=== PATIENT | female | born 1950 | race Caucasian/White ===

== ENCOUNTER 2020-09-21 13:28 | Emergency (ER) | payer BC, OTHER ==
[2020-09-21 13:52] VITALS: BMI 29.0
[2020-09-21] MEDS ORDERED: BAMLANIVIMAB 700 MG in SODIUM CHLORIDE 250 ML IVPB ONE (13:58)
[2020-09-21] MEDS ORDERED: ALPRAZolam 1 MG TABLET PO PRN (13:59)
[2020-09-21] MEDS ORDERED: ALPRAZolam 1 MG TABLET ONE (14:08)
[2020-09-21] MEDS ORDERED: ALPRAZolam 0.25 MG TABLET ONE (14:09)
[2020-09-21 14:36] LABS: HEMOGLOBIN 14.5 GM/dL (10.7-15.3); MCH 31.1 pg (25.7-33.7); MCHC 33.8 g/dl (32.0-36.0); MEAN CELL VOLUME 92.2 fl (80-96); MEAN PLT VOLUME 8.8 fl (7.5-11.1); PLATELET COUNT 178 K/MM3 (134-434); RBC 4.66 M/mm3 (3.60-5.2); RDW 13.6 % (11.6-15.6); WHITE BLOOD COUNT 6.5 K/mm3 (4.0-10.0)
[2020-09-21 14:54] LABS: POTASSIUM 4.2 mmol/L (3.5-5.1)
[2020-09-21 14:56] LABS: CALCIUM 9.3 mg/dL (8.5-10.1)
[2020-09-21 15:00] LABS: CREATININE 1.2 mg/dL (0.55-1.3)
[2020-09-21] MEDS ORDERED: ACETAMINOPHEN 325 MG TABLET (FP) ONE (15:02)
[2020-09-21 16:54] VITALS: BP 142/93; PULSE 83; TEMP 98.9
== END 2020-09-21 17:00 | disposition home or self-care (01) ==
LOC: JCOVINFU 13:28 → JER 13:28 → JCOVINFU 17:00
DX: U07.1 COVID-19 (principal)
CPT/HCPCS: 36415; 80048; 85027; 99284-25; M0239; Q0239

== ENCOUNTER 2021-01-22 12:16 | Emergency (ER) | payer BC ==
[2021-01-22 12:23] VITALS: TEMP 98.5; BMI 28.6
[2021-01-22 13:16] VITALS: BP 151/108; PULSE 84
== END 2021-01-22 13:52 | disposition home or self-care (01) ==
LOC: JER 12:16
DX: R25.1 Tremor, unspecified (principal)
CPT/HCPCS: 99281-25

== ENCOUNTER 2021-11-12 12:31 | Emergency (ER) | payer BC ==
[2021-11-12 12:49] VITALS: BP 169/90; PULSE 98; TEMP 98.3; BMI 31.9
[2021-11-12] MEDS ORDERED: KETOROLAC TROMETHAMINE 30 MG/1 ML VIAL IM ONE (14:40)
[2021-11-12] MEDS ORDERED: KETOROLAC TROMETHAMINE 30 MG/1 ML VIAL ONE (15:11)
== END 2021-11-12 15:43 | disposition home or self-care (01) ==
LOC: JER 12:31
PROC: 3E0233Z Introduction of Anti-inflammatory into Muscle, Percutaneous Approach (ICD-10-PCS; principal; 2021-11-12)
DX: M54.2 Cervicalgia (principal); M54.50 Low back pain, unspecified
CPT/HCPCS: 99284-25

== ENCOUNTER 2021-11-30 04:16 | Day surgery (SDC) | payer BC ==
[2021-11-28 12:43] VITALS: BMI 28.3
[2021-11-30] MEDS ORDERED: LIDOCAINE HCL/PF 1% SDV 5ML VIAL ONE (07:15)
[2021-11-30] MEDS ORDERED: BUPIVACAINE HCL/PF 0.75% 10 ML VIAL ONE (07:15)
[2021-11-30] MEDS ORDERED: LIDOCAINE HCL 1% PRESERVATIVE FREE - 30ML VIAL IJ ONE (09:08)
[2021-11-30] MEDS ORDERED: IOHEXOL 180 MG/1 ML ML IJ ONE (09:10)
[2021-11-30] MEDS ORDERED: BUPIVACAINE HCL/PF 0.75% 10 ML VIAL MM ONE (09:15)
[2021-11-30 09:41] VITALS: TEMP 98.8
[2021-11-30 10:19] VITALS: BP 131/85; PULSE 66
== END 2021-11-30 10:00 | disposition home or self-care (01) ==
LOC: JASU-SURG 04:16
PROVIDERS: ATTEND Pain Medicine Pain Medicine
PROC: BR16YZZ Fluoroscopy of Lumbar Facet Joint(s) using Other Contrast (ICD-10-PCS; 2021-11-30)
PROC: 3E0T3BZ Introduction of Anesthetic Agent into Peripheral Nerves and Plexi, Percutaneous Approach (ICD-10-PCS; principal; 2021-11-30 09:00)
DX: M47.816 Spondylosis without myelopathy or radiculopathy, lumbar region (principal); I10 Essential (primary) hypertension
CPT/HCPCS: 76000-TC-FY

== ENCOUNTER 2021-12-16 17:56 | Emergency (ER) | payer BC ==
[2021-12-16 18:05] VITALS: BP 168/111; PULSE 67; TEMP 98; BMI 28.3
== END 2021-12-16 19:00 | disposition home or self-care (01) ==
LOC: JER 17:56
DX: M54.50 Low back pain, unspecified (principal)
CPT/HCPCS: 99283-25

== ENCOUNTER 2021-12-20 11:00 | Emergency (ER) | payer BC ==
[2021-12-20 11:05] VITALS: TEMP 97.7; BMI 28.3
[2021-12-20] MEDS ORDERED: KETOROLAC TROMETHAMINE 30 MG/1 ML VIAL IM ONE (11:39)
[2021-12-20] MEDS ORDERED: LIDOCAINE 5% TOPICAL PATCH TP ONE (11:39)
[2021-12-20] MEDS ORDERED: KETOROLAC TROMETHAMINE 30 MG/1 ML VIAL ONE (11:54)
[2021-12-20] MEDS ORDERED: LIDOCAINE 5% TOPICAL PATCH ONE (11:54)
[2021-12-20 12:45] VITALS: PULSE 68
[2021-12-20 14:04] VITALS: BP 164/107
[2021-12-20] MEDS ORDERED: LIDOCAINE PATCH REMOVAL MC SCH (22:00)
== END 2021-12-20 14:05 | disposition home or self-care (01) ==
LOC: JER 11:00
PROC: 3E023GC Introduction of Other Therapeutic Substance into Muscle, Percutaneous Approach (ICD-10-PCS; principal; 2021-12-20)
DX: M54.89 Other dorsalgia (principal)
CPT/HCPCS: 93005; 93010; 99284-25

== ENCOUNTER 2021-12-30 15:40 | Emergency (ER) | payer BC ==
[2021-12-30 15:47] VITALS: PULSE 98; TEMP 97; BMI 28.3
[2021-12-30] MEDS ORDERED: TIZANIDINE HCL 4 MG TABLET PO ONE (16:32)
[2021-12-30] MEDS ORDERED: KETOROLAC TROMETHAMINE 15 MG/ML VIAL IM ONE (16:33)
[2021-12-30] MEDS ORDERED: KETOROLAC TROMETHAMINE 15 MG/ML VIAL ONE (17:05)
[2021-12-30 18:25] VITALS: BP 137/95
== END 2021-12-30 18:25 | disposition home or self-care (01) ==
LOC: JERFT 15:40
PROC: 3E0233Z Introduction of Anti-inflammatory into Muscle, Percutaneous Approach (ICD-10-PCS; principal; 2021-12-30)
DX: M54.50 Low back pain, unspecified (principal); G89.29 Other chronic pain
CPT/HCPCS: 96372; 99284-25

== ENCOUNTER 2022-01-01 04:08 | Day surgery (SDC) | payer BC ==
[2021-12-27 17:08] VITALS: BMI 28.3
[2022-01-01] MEDS ORDERED: LIDOCAINE HCL/PF 1% SDV 5ML VIAL ONE (07:21)
[2022-01-01] MEDS ORDERED: BUPIVACAINE HCL/PF 0.75% 10 ML VIAL ONE (07:21)
[2022-01-01] MEDS ORDERED: LIDOCAINE HCL/PF 2% SDV 5ML VIAL ONE (07:43)
[2022-01-01 12:29] VITALS: BP 147/86; PULSE 94; TEMP 97
== END 2022-01-01 14:15 | disposition home or self-care (01) ==
LOC: JASU-SURG 04:08
PROVIDERS: ATTEND Pain Medicine Pain Medicine
DX: Z53.8 Procedure and treatment not carried out for other reasons (principal)

== ENCOUNTER 2022-01-01 14:25 | Emergency (ER) | payer BC ==
[2022-01-01 14:36] VITALS: TEMP 98.6; BMI 28.3
[2022-01-01 15:39] VITALS: BP 155/94; PULSE 78
[2022-01-01] MEDS ORDERED: ACETAMINOPHEN 325 MG TABLET (FP) PO ONE (15:49)
[2022-01-01] MEDS ORDERED: ACETAMINOPHEN 325 MG TABLET (FP) ONE (16:23)
== END 2022-01-01 17:51 | disposition home or self-care (01) ==
LOC: JER 14:25
DX: M54.50 Low back pain, unspecified (principal); R03.0 Elevated blood-pressure reading, without diagnosis of hypertension
CPT/HCPCS: 70450-TC; 93005; 93010; 99284-25

== ENCOUNTER 2022-01-25 19:48 | Emergency (ER) | payer BC ==
[2022-01-25 19:52] VITALS: BP 188/113; PULSE 104; BMI 28.3
[2022-01-25] MEDS ORDERED: methylPREDNISolone NA SUCC 125 MG/2 ML VIAL IVPUSH ONE (20:50)
[2022-01-25] MEDS ORDERED: methylPREDNISolone NA SUCC 125 MG/2 ML VIAL ONE (21:02)
== END 2022-01-25 22:49 | disposition home or self-care (01) ==
LOC: JER 19:48
PROC: 3E033GC Introduction of Other Therapeutic Substance into Peripheral Vein, Percutaneous Approach (ICD-10-PCS; principal; 2022-01-25)
DX: M54.89 Other dorsalgia (principal)
CPT/HCPCS: 99284-25

== ENCOUNTER 2022-01-28 12:17 | Emergency (ER) | payer BC ==
[2022-01-28 12:35] VITALS: PULSE 80; TEMP 98.4; BMI 26.7
[2022-01-28 13:40] VITALS: BP 151/103
== END 2022-01-28 13:47 | disposition home or self-care (01) ==
LOC: JER 12:17 → JERFT 12:17
DX: M54.89 Other dorsalgia (principal); G89.29 Other chronic pain
CPT/HCPCS: 99283-25

== ENCOUNTER 2022-04-07 13:53 | Emergency (ER) | payer BC ==
[2022-04-07 13:57] VITALS: BP 190/91; PULSE 69; RESP 18; TEMP 97.8; BMI 26.7
[2022-04-07] MEDS ORDERED: DEXAMETHASONE SOD PHOSPHATE 10 MG/1 ML VIAL IM ONE (14:24)
[2022-04-07] MEDS ORDERED: LIDOCAINE 5% TOPICAL PATCH TP ONE (14:24)
[2022-04-07] MEDS ORDERED: LIDOCAINE 5% TOPICAL PATCH ONE (14:27)
[2022-04-07] MEDS ORDERED: DEXAMETHASONE SOD PHOSPHATE 10 MG/1 ML VIAL ONE (14:28)
[2022-04-08] MEDS ORDERED: LIDOCAINE PATCH REMOVAL MC SCH (02:30)
== END 2022-04-07 15:38 | disposition home or self-care (01) ==
LOC: JER 13:53 → JERFT 13:53
PROC: 3E023GC Introduction of Other Therapeutic Substance into Muscle, Percutaneous Approach (ICD-10-PCS; principal; 2022-04-07)
DX: M54.50 Low back pain, unspecified (principal)
CPT/HCPCS: 99284-25; J1100

== ENCOUNTER 2022-04-14 15:47 | Emergency (ER) | payer BC ==
[2022-04-14 16:13] VITALS: PULSE 60; RESP 18; TEMP 97.9; BMI 26.9
[2022-04-14 17:00] VITALS: BP 162/101
[2022-04-14] MEDS ORDERED: LIDOCAINE 5% TOPICAL PATCH TP ONE (17:06)
[2022-04-14] MEDS ORDERED: LIDOCAINE 5% TOPICAL PATCH ONE (17:29)
[2022-04-15] MEDS ORDERED: LIDOCAINE PATCH REMOVAL MC SCH (05:00)
== END 2022-04-14 18:40 | disposition home or self-care (01) ==
LOC: JER 15:47 → JERFT 15:47
DX: M54.9 Dorsalgia, unspecified (principal)
CPT/HCPCS: 99283-25

== ENCOUNTER 2023-04-10 05:16 | Day surgery (SDC) | payer BC ==
[2023-04-08 13:19] VITALS: BMI 25.6
[2023-04-10 11:30] VITALS: TEMP 97.8
[2023-04-10 13:16] VITALS: BP 151/75; PULSE 58; RESP 18
== END 2023-04-10 12:45 | disposition home or self-care (01) ==
LOC: JASU-ENDO 05:16
PROVIDERS: ATTEND Internal Medicine Gastroenterology
PROC: 0DJD8ZZ Inspection of Lower Intestinal Tract, Via Natural or Artificial Opening Endoscopic (ICD-10-PCS; 2023-04-10)
PROC: 0DJD8ZZ Inspection of Lower Intestinal Tract, Via Natural or Artificial Opening Endoscopic (ICD-10-PCS; principal; 2023-04-10 11:00)
DX: Z12.11 Encounter for screening for malignant neoplasm of colon (principal); K55.20 Angiodysplasia of colon without hemorrhage; K57.30 Diverticulosis of large intestine without perforation or abscess without bleeding

== ENCOUNTER 2024-11-24 06:22 | Inpatient (IN) | payer OTHER ==
[2024-11-19 14:38] VITALS: BMI 28.1
[2024-11-24 07:06] LABS: INR 1.11 (0.83-1.09); PROTHROMBIN TIME (PATIENT) 12.2 SEC (9.7-13.0)
[2024-11-24] MEDS ORDERED: SUCCINYLCHOLINE CHLORIDE 200 MG/10 ML SYRINGE ONE (07:24)
[2024-11-24] MEDS ORDERED: ROCURONIUM BROMIDE 50 MG/5 ML SYRINGE ONE ×2 (07:24→09:13)
[2024-11-24] MEDS ORDERED: ESMOLOL HCL 100,000 MCG/10 ML VIAL ONE (07:25)
[2024-11-24] MEDS ORDERED: ceFAZolin SODIUM 1 GM VIAL ONE (07:25)
[2024-11-24] MEDS ORDERED: LIDOCAINE HCL/PF 2% SDV 5ML VIAL ONE (07:25)
[2024-11-24] MEDS ORDERED: DEXAMETHASONE SOD PHOSPHATE 4 MG/1 ML VIAL ONE (07:25)
[2024-11-24] MEDS ORDERED: ONDANSETRON 4 MG/2 ML VIAL ONE (07:25)
[2024-11-24] MEDS ORDERED: MIDAZOLAM HCL 2 MG/2 ML SINGLE DOSE VIAL ONE ×2 (07:30→10:44)
[2024-11-24] MEDS ORDERED: niCARdipine HCL 25 MG/10 ML AMPUL IVPB ONE (07:36)
[2024-11-24] MEDS ORDERED: ACETAMINOPHEN INJECTION 100 ML ONE (07:36)
[2024-11-24] MEDS ORDERED: ALBUTEROL SO4 HFA INHALER IH ONE ×2 (08:09)
[2024-11-24] MEDS: ceFAZolin SODIUM 1 GM VIAL IVPB ONE (08:40)
[2024-11-24] MEDS ORDERED: ADENOSINE 6 MG/2 ML VIAL IVPUSH ONE (08:46)
[2024-11-24] MEDS ORDERED: ALBUMIN HUMAN 5% 500 ML IV SOLUTION IV ONE (10:00)
[2024-11-24] MEDS ORDERED: PROTAMINE SULFATE 50 MG/5 ML VIAL ONE (10:16)
[2024-11-24] MEDS ORDERED: HYDROmorphone HCl 2 MG/ML VIAL ONE (10:20)
[2024-11-24] MEDS ORDERED: SUGAMMADEX SODIUM 200 MG/2 ML VIAL ONE (10:22)
[2024-11-24] MEDS ORDERED: PROPOFOL 20 ML ONE (10:24)
[2024-11-24] MEDS ORDERED: PATIENT'S OWN MEDICATION (NON-FORMULARY) (Alprazolam [Xanax] 0.5 MG Tablet) PO SCH (10:45)
[2024-11-24] MEDS ORDERED: ALBUTEROL SO4 HFA INHALER IH SCH (10:45)
[2024-11-24] MEDS ORDERED: LACTATED RINGERS SOLUTION 1,000 ML IV SCH (11:00)
[2024-11-24] MEDS ORDERED: ALPRAZolam 2 MG TABLET PO PRN (11:07)
[2024-11-24] MEDS ORDERED: HALOPERIDOL LACTATE 5 MG/ML ONE (11:23)
[2024-11-24] MEDS: HALOPERIDOL LACTATE 5 MG/ML IVPUSH SCH (11:23)
[2024-11-24 12:23] VITALS: RESP 18
[2024-11-24] MEDS ORDERED: HALOPERIDOL LACTATE 5 MG/ML IM SCH (12:45)
[2024-11-24] MEDS: LACTATED RINGERS SOLUTION 1,000 ML IV SCH (12:51)
[2024-11-24] MEDS: oxyCODONE HCL 5 MG TABLET PO PRN (14:53)
[2024-11-24] MEDS ORDERED: CEFAZOLIN 1 GM/D5W 1 GM/50 ML BAG IVPB SCH (16:00)
[2024-11-24] MEDS: ACETAMINOPHEN 500 MG TABLET (FP) PO SCH (17:10)
[2024-11-24] MEDS: ALPRAZolam 1 MG TABLET PO PRN (17:22)
[2024-11-24] MEDS: CEFAZOLIN 1 GM in DEXTROSE 5%-WATER - 50 ML IVPB SCH (17:54)
[2024-11-24 20:51] LABS: ABSOLUTE IMMATURE GRANULOCYTES 0.03 x10^3/uL (0.0-0.031); BASOPHILS # 0.02 x10^3/uL (0.01-0.08); EOSINOPHIL % 0.1 % (0.7-5.8); EOSINOPHILS # 0.01 x10^3/uL (0.04-0.36); HEMATOCRIT 30.3 % (34.1-44.9); HEMOGLOBIN 9.7 g/dL (11.2-15.7); MEAN CELL VOLUME 88.9 fl (79.4-94.8); MEAN PLT VOLUME 9.8 fl (9.4-12.3); MONOCYTE # 0.32 x10^3/uL (0.24-0.86); PLATELET COUNT 166 x10^3/uL (182-369); RDW 13.5 % (12.4-16.6)
[2024-11-24] MEDS: CHLORHEXIDINE GLUCONATE 4% CLEANSER FOR DECOLONIZATION TP SCH (21:14)
[2024-11-24] MEDS: ATORVASTATIN CA 20 MG TABLET (FP) PO SCH (21:16)
[2024-11-24 21:17] LABS: ALBUMIN 3.7 g/dl (3.4-5.0); BLOOD UREA NITROGEN 25.5 mg/dL (7-18); MAGNESIUM 1.7 mg/dL (1.8-2.4)
[2024-11-24 21:20] LABS: CREATININE 1.4 mg/dL (0.55-1.3)
[2024-11-24] MEDS: MUPIROCIN 2% TOPICAL OINTMENT FOR DECOLONIZATION NS SCH (21:20)
[2024-11-24 21:21] LABS: PHOSPHOROUS 3.4 mg/dL (2.5-4.9)
[2024-11-24 21:22] LABS: BILIRUBIN,TOTAL 0.6 mg/dL (0.2-1); TOT PROT 6.1 g/dl (6.4-8.2)
[2024-11-24] MEDS: MAGNESIUM SULFATE IN WATER 2 GM/50 ML IVPB IVPB ONE (21:26)
[2024-11-25] MEDS: LEVOTHYROXINE NA 125 MCG TABLET (FP) PO SCH (06:05)
[2024-11-25 06:50] LABS: ABSOLUTE IMMATURE GRANULOCYTES 0.05 x10^3/uL (0.0-0.031); BASOPHILS # 0.02 x10^3/uL (0.01-0.08); EOSINOPHIL % 0.2 % (0.7-5.8); EOSINOPHILS # 0.02 x10^3/uL (0.04-0.36); HEMATOCRIT 32.4 % (34.1-44.9); HEMOGLOBIN 10.2 g/dL (11.2-15.7); MCHC 31.5 g/dl (32.2-35.5); MEAN CELL VOLUME 91.3 fl (79.4-94.8); MEAN PLT VOLUME 9.9 fl (9.4-12.3); MONOCYTE % 9.6 % (4.7-12.5); PLATELET COUNT 170 x10^3/uL (182-369); RDW 13.2 % (12.4-16.6)
[2024-11-25 07:06] LABS: POTASSIUM 4.7 mmol/L (3.5-5.1)
[2024-11-25 07:07] LABS: BLOOD UREA NITROGEN 25.7 mg/dL (7-18); CALCIUM 9.1 mg/dL (8.5-10.1); MAGNESIUM 2.6 mg/dL (1.8-2.4)
[2024-11-25 07:11] LABS: CREATININE 1.3 mg/dL (0.55-1.3); PHOSPHOROUS 3.2 mg/dL (2.5-4.9)
[2024-11-25] MEDS: LOSARTAN POTASSIUM 50 MG TABLET PO SCH (09:09)
[2024-11-25] MEDS: DULoxetine HCL 30 MG CAPSULE.DR PO SCH (09:10)
[2024-11-25] MEDS: METHOCARBAMOL 500 MG TABLET PO PRN (09:10)
[2024-11-25 10:17] VITALS: BP 129/72; PULSE 57; TEMP 97.2
[2024-11-25] MEDS: ASPIRIN 81 MG CHEWABLE TABLETS PO SCH (11:17)
== END 2024-11-25 16:15 | disposition home or self-care (01) | DRG 269 ==
LOC: J2C 06:22 → JICU 14:11
PROVIDERS: ADMIT Surgery; ATTEND Surgery
PROC: 04V03DZ Restriction of Abdominal Aorta with Intraluminal Device, Percutaneous Approach (ICD-10-PCS; principal; 2024-11-24 08:00)
DX: I71.43 Infrarenal abdominal aortic aneurysm, without rupture (principal); E03.9 Hypothyroidism, unspecified; I10 Essential (primary) hypertension; J44.9 Chronic obstructive pulmonary disease, unspecified; F41.8 Other specified anxiety disorders; M48.00 Spinal stenosis, site unspecified
CPT/HCPCS: 36415; 76000-TC-FY; 80048; 80053; 83735; 84100; 85025; 85610; 85730; 86850; 86900; 86901; 86922; 94010; 94760; C1760; C1769; C1894; C1897; J0131